=== PATIENT | female | born 1995 | race American Indian/Alaskan Native ===

== ENCOUNTER 2019-08-12 02:45 | Emergency (ER) | payer SELFPAY ==
[2019-08-12] MEDS ORDERED: dexAMETHasone 4 MG/ML VIAL IV ONE (05:56)
[2019-08-12] MEDS ORDERED: KETOROLAC 30 MG/1 ML INJ IM ONE (05:56)
--- NOTE | 2019-08-12 06:01 | Emergency Department Report ---
ED Back Pain/Injury HPI - General Chief Complaint: Back Pain/Injury Stated Complaint: LOWER BACK PAIN Time Seen by Provider: 08/12/19 05:06 Source: patient Limitations: No Limitations - History of Present Illness Initial Comments: Is a 24-year-old -[place] female that presents to the emergency room with low back pain for several hours. Patient states she woke up in severe pain from thoracic spine and lumbar spine. Patient reports pain is midline and worse with movement. Patient states she is unable to move right lower extremity due to pain. She reports pain is constant stabbing in intensity. She denies radiating pain, recently injury, numbness or tingling, swelling, weakness or change in urinary or bowel pattern. MD Complaint: back pain Onset/Timin -: hour(s) Similar Symptoms Previously: No Place: home Radiation: none Severity: severe Severity scale (0 -10): 10 Quality: stabbing Consistency: constant Improves With: none Worsens With: movement Context: unknown Associated Symptoms: denies: numbness, difficulty urinating, incontinence, fever/chills - Related Data Previous Rx's Medication Instructions Recorded Last Taken Type Ibuprofen [Motrin 800 MG tab] 800 mg PO Q8HR PRN #30 tablet 08/12/19 Unknown Rx Sulfamethoxazole/Trimethoprim 1 each PO BID #6 tablet 08/12/19 Unknown Rx [Bactrim DS TAB] methOCARBAMOL [Robaxin TAB] 500 mg PO TID PRN #15 tablet 08/12/19 Unknown Rx Allergies Allergy/AdvReac Type Severity Reaction Status Date / Time No Known Allergies Allergy Unverified 08/12/19 03:05 ED Review of Systems ROS: Stated complaint: LOWER BACK PAIN Other details as noted in HPI Constitutional: denies: chills, fever Respiratory: denies: cough, shortness of breath, wheezing Cardiovascular: denies: chest pain, palpitations Gastrointestinal: denies: abdominal pain, nausea, diarrhea Musculoskeletal: back pain. denies: joint swelling, arthralgia Skin: denies: rash, lesions Neurological: denies: headache, weakness, paresthesias Psychiatric: denies: anxiety, depression ED Past Medical Hx - Past Medical History thyroid Ca-remission since 2017 ED Back Pain Physical Exam - Exam General: Vital signs noted. No distress. Alert and acting appropriately. Back/Abdomen: Yes Perithoracic Tenderness (TTP along T5 to T8, no deformity, no swelling, no erythema), Yes Perilumbar Tenderness (TTP along L2 to L3), No Ab dominal Tenderness, No Sacroiliac Tenderness, No Flank Tenderness, No Straight Leg Raise Pain Neuro: Yes Normal Sensation, Yes Normal DTR's, Yes Normal Gait, No Motor Weakness ED Course Vital Signs 08/12/19 02:51 Temperature 98.7 F Pulse Rate 89 Respiratory 18 Rate Blood Pressure 129/56 O2 Sat by Pulse 95 Oximetry Ed Back Pain Tests - Tests Tests: Abnormal UA (positive nitrates, leukocyte esterase, elevated WBC) ED Medical Decision Making - Radiology Data Radiology results: report reviewed X-ray of thoracic spine and L-spine negative for acute findings. - Medical Decision Making This is a 24 y.o. female presents with low back pain for 4-5 hours. Patient was examined by this provider. Midline tenderness to thoracic and lumbar spine on exam. Obtained a urinalysis, test, and x-rays of thoracic and L- spine. Urinalysis positive for acute cystitis. Negative urine test. Patient informed of lab results. Patient admits to ground-level fall while at work today and concerned of possible injury to the spine. X-rays of L-spine thoracic spine no acute findings. Given analgesics. Muscle strain. Start bactrim, robaxin, and ibuprofen. Referral to PCP for follow up. Instructed to return to the ER with worsening symptoms. Patient discharge home stable. Critical care attestation.: If time is entered above; I have spent that time in minutes in the direct care of this critically ill patient, excluding procedure time. ED Disposition Clinical Impression: Lumbar radiculopathy, acute, Strain of muscle, fascia and tendon of lower back, initial encounter Fall Qualifiers: Encounter type: initial encounter Qualified Code(s): W19.XXXA - Unspecified fall, initial encounter Acute cystitis Qualifiers: Hematuria presence: without hematuria Qualified Code(s): N30.00 - Acute cystitis without hematuria Disposition: TO HOME OR SELFCARE Is pt being admited?: No Condition: Stable Instructions: Muscle Strain (ED), Urinary Tract Infection in Women (ED), Arthralgia (ED), Core Strengthening Exercises (GEN), RICE Therapy (ED) Additional Instructions: Complete antibiotics as prescribed. Apply ice or heat for 20 minutes on and up to 1 hour off alternating. Take pain medication and muscle relaxers every 8 hours as need. Follow up w Prescriptions: Sulfamethoxazole/Trimethoprim [Bactrim DS TAB] 1 each PO BID #6 tablet Ibuprofen [Motrin 800 MG tab] 800 mg PO Q8HR PRN #30 tablet PRN Reason: Pain , Severe (7-10) methOCARBAMOL [Robaxin TAB] 500 mg PO TID PRN #15 tablet PRN Reason: Muscle Spasm Referrals: [facility] [Outside] - 3-5 Days [facility] [Outside] - 3-5 Days [facility] [Outside] - 3-5 Days Forms: Work/School Release Form(ED) Time of Disposition: 07:23
[2019-08-12 06:28] LABS: Bacteria,Urine 4+ /HPF (Negative); Bilirubin,Urine NEG (Negative); Blood,Urine NEG (Negative); Color,Urine Yellow (Yellow); Mucus,Urine 3+ /HPF; Protein,Urine <15 mg/dL mg/dL (Negative); Urobilinogen,Urine < 2.0 mg/dL (<2.0)
[2019-08-12 06:29] LABS: HCG Qualitative,Urine Negative (Negative)
[2019-08-12] MEDS ORDERED: HYDROcodone/ACETAMINOPHEN 5-325 MG TAB PO ONE (07:04)
[2019-08-12] MEDS ORDERED: HYDROcodone/ACETAMINOPHEN 5-325 MG TAB ONE (07:07)
--- NOTE | 2019-08-12 07:20 | XRay Report ---
Thoracic spine-3 views Lumbar spine-3 views INDICATION: fall, back pain. COMPARISON: None. IMPRESSION: Mild dextroscoliosis centered at T8 and levoscoliosis centered at L3. Normal AP alignmen t in the spine. No significant discogenic DJD or facet arthropathy. No acute osseous or soft tissue abnormality. Signer Name: Naveed Mcclendon MD Signed: 08/12/2019 7:16 AM Workstation Name: [id number]
[2019-08-12 07:53] VITALS: BP 122/62
== END 2019-08-12 07:47 | disposition home or self-care (01) ==
LOC: ED 02:45
DX: S39.012A Strain of muscle, fascia and tendon of lower back, initial encounter (principal); M54.16 Radiculopathy, lumbar region; N30.00 Acute cystitis without hematuria; X58.XXXA Exposure to other specified factors, initial encounter; Y93.89 Activity, other specified; Y92.89 Other specified places as the place of occurrence of the external cause; Y99.8 Other external cause status
CPT/HCPCS: 72072; 72100; 81001; 81025; 96372; 96374; 99284; J1100; J1885